=== PATIENT | female | born 1955 | race Caucasian/White ===

== ENCOUNTER 2018-07-04 03:29 | Emergency (ER) | payer MEDICARE, MEDICAID, SELFPAY ==
[2018-07-04 03:34] VITALS: BP 176/104; PULSE 86; RESP 18; TEMP 37.4; O2SAT 96
--- NOTE | 2018-07-04 03:48 | W.ED.GENAD ---
Discharge Plan Disposition Patient Disposition: HOME Condition: Good Discharge Details Chief Complaint: RespSymp Clinical Impression: Upper respiratory infection, viral Primary Care Provider: Terry Myers ED Provider: Yuan Fuentes Home Meds and New Rx's Prescriptions: New benzonatate [Tessalon Perles] 100 mg capsule 100 mg PO TID PRN (Reason: cough) Qty: 20 RF: 0 No Action ibuprofen 600 MG tablet 600 mg PO PRN RF: 0 [id number]-dkufxql-nbtlwzbm 50-325-40 mg Capsule 1 cap PO QID PRN PRNRF: 0 Discharge Instructions Instructions: Upper Respiratory Infection (ED) Additional Instructions: Please drink 8-10 cups of water per day. Please take Tylenol Motrin as needed for sore throat or fever. If you notice any worsening of your symptoms, or any new symptoms such as vomiting, diarrhea, fever, chills, shortness of breath, chest pain, numbness, weakness, or fainting , please return immediately to the emergency department for reevaluation. Please follow up with your primary care provider as soon as possible for reassessment and reevaluation. As always, it was a pleasure participating in your medical care today. Referrals: Terry Myers [Primary Care Provider] - Medical Decision Making This is a 63-year-old female who presents with 48 hours of upper respiratory symptom infections. Runny nose, congestion, mild sore throat. She has had mild associated cough. Physical exam demonstrates normal lung sounds normal vital signs no fever, tachycardia hypoxemia or tachypnea. Minimal erythema in the posterior oropharynx with no tonsillar exudates. No concerning lung sounds suggestive of pneumonia. Patient is adamant that she is concerned she might have strep or the flu, and wants to be checked. Strep test is negative. Physical exam is reassuring. His symptoms have been for 48 hours or greater I do not feel that she would benefit from Tamiflu if she did have influenza. I feel her symptoms more consistent with a regular adenoma rhinovirus causing her symptomatology. We will give Toradol and Decadron for her sore throat and URI symptoms. With reassuring vital signs and normal physical exam I feel she can be safely discharged home with a diagnosis of viral upper respiratory infection. We discussed red flags for which to return the importance of close follow-up with her PCP. I have extensively reviewed the treatment plan and discharge instructions with the patient. I have addressed all patient concerns at this time. The patient was made aware of what symptoms to monitor for that would warrant a return to the emergency department. Discussed the plan with the patient, they demonstrate verbal understanding and agreement with our assessment and plan at this time. HPI General Date/Time Provider Initiated Documentation: 07/04/18 03:36. HPI Narrative: This is a 63-year-old female with no significant past medical history who presents today for evaluation of cough, runny nose, congestion, mild sore throat for the last 48-72 hours. Symptoms have been gradually getting worse and she is concerned for an upper respiratory infection. States that she may has had a fever at home of 101 this evening but is unsure because she was using a rectal thermometer. She has been drinking plenty of fluids, but has had no improvement of her symptoms with this. She has no associated shortness of breath, chest pain, sputum production with her cough, vomiting or diarrhea. She denies any other sick contacts. She did not get her flu shot this year. She denies any other complaints at this time. No other modifying or relieving factors. She denies a surgical history. She denies any tobacco abuse. Related Data Home Medications Medication Instructions Recorded Confirmed ibuprofen 600 mg PO PRN tab-cap 11/14/17 07/04/18 benzonatate [Tessalon Perles] 100 mg PO TID PRN #20 cap 07/04/18 [id number]-[id number] 1 cap PO QID PRN PRN 07/04/18 07/04/18 Previous Rx's Medication Instructions Recorded benzonatate [Tessalon Perles] 100 mg PO TID PRN #20 cap 07/04/18 Allergies Allergy/AdvReac Type Severity Reaction Status Date / Time codeine AdvReac Unverified 07/04/18 03:32 General Stated Complaint: RespSymp DENYS: 3 Review of Systems Review of Systems All systems reviewed & are unremarkable except as noted in HPI and below PFSH Social History Smoking/Tobacco Use Status: Former Tobacco Use Exam Narrative Exam Narrative: 1.Const: Well-nourished, Well-developed, appearing stated age 2.Eyes: PERRL, no conjunctival injection, and symmetrical lids. 3.ENT: Atraumatic external nose and ears. Moist MM. Neck: Symmetric, trachea midline, No thyromegaly. Tympanic membranes normal, no evidence of effusion. No erythema in the posterior oropharynx. No tonsillar exudates 4.CVS: +S1/S2, No murmurs or gallops. Peripheral pulses 2+ and equal in all extremities. Brisk capillary refill in all extremities. 5.RESP: Unlabored respiratory effort. Clear to auscultation bilaterally. No wheezes rales or rhonchi 6.GI: Soft, Nontender/Nondistended, No hepatosplenomegaly. No guarding or rebound. 7.MSK: Normocephalic/Atraumatic, Extremities w/o deformity or ttp No cyanosis or clubbing, Normal movement of all extremities 8.Skin: Warm, Dry. No rashes or lesions. 9.Neuro: temperature inspector II-XII grossly intact. Sensation grossly intact, no focal neurologic deficits. 10.Psych: (AAO) x3. Appropriate mood and affect Course Vital Signs Temperature 37.4 C 07/04/18 03:34 Pulse 86 07/04/18 03:34 Respiratory Rate 18 07/04/18 03:34 Blood Pressure 176/104 H 07/04/18 03:34 Pulse Oximetry 96 07/04/18 03:34 Temperature 37.4 C 07/04/18 03:34 Temperature Source Temporal Artery Scan 07/04/18 03:34 Pulse 86 07/04/18 03:34 Respiratory Rate 18 07/04/18 03:34 Respiratory Effort 07/04/18 03:37 Respiratory Depth Normal 07/04/18 03:37 Blood Pressure 176/104 H 07/04/18 03:34 Pulse Oximetry 96 07/04/18 03:34 Oxygen Delivery Method Room Air 07/04/18 03:34 Oxygen Flow Rate 0 07/04/18 03:34
[2018-07-04] MEDS: Ketorolac 30 MG/ML VIAL IM (03:53)
[2018-07-04] MEDS: Dexamethasone 4 MG TAB 12 MG PO (03:53)
== END 2018-07-04 04:19 | disposition home or self-care (01) ==
LOC: ER 04:24
PROVIDERS: Emergency Provider Student in an Organized Health Care Education/Training Program; PCP Family Medicine
DX: J06.9 Acute upper respiratory infection, unspecified (principal)
CPT/HCPCS: 87449; 87880; 96372; 99284; J1885; J8540

== ENCOUNTER 2019-04-22 18:07 | Emergency (ER) | payer MEDICARE, MEDICAID, SELFPAY ==
[2019-04-22 18:12] VITALS: BP 142/84; PULSE 103; RESP 18; TEMP 38.2; O2SAT 98
--- NOTE | 2019-04-22 18:41 | DI.CT_ITS ---
SYMPTOM/DIAGNOSIS: LEG SWELLING, SOB, TACHYCARDIC CHEST CTA FOR PULMONARY EMBOLISM: CT angiography was performed with multi slice acquisition and multi planar and 3D reconstruction. The aorta and pulmonary arteries are well opacified with IV contrast and there is no evidence of aortic dissection or pulmonary emboli. There are atherosclerotic changes of the aorta but no evidence of an aneurysm. Coronary artery calcifications are also seen. There are no pleural or pericardial effusions or evidence of infiltrates. There are mild emphysematous changes at the upper lobes. Calcifications are seen at the superior aspect of the liver. Calcifications are also seen in the spleen. The findings may represent calcified granulomas. The adrenals and visualized portions of the pancreas and kidneys are unremarkable. IMPRESSION: No evidence of pulmonary emboli or other acute abnormality.
--- NOTE | 2019-04-22 18:49 | DI.US_ITS ---
SYMPTOM/DIAGNOSIS: PAIN, SWELLING LEFT LOWER EXTREMITY ULTRASOUND: The femoral and popliteal veins and visualized calf veins are freely compressible. No thrombus is visible. Doppler venous wave form augments normally. No superficial venous thrombosis or Dobbins's cyst is seen. IMPRESSION: Negative left lower extremity ultrasound. No evidence of DVT.
--- NOTE | 2019-04-22 18:54 | ED.GENADUL_ITS ---
Discharge Plan Disposition Patient Disposition: HOME Discharge Details Chief Complaint: Vascular Clinical Impression: Leg pain, Fever, Left foot infection Primary Care Provider: Terry Myers ED Provider: Gage Perez Home Meds and New Rx's Prescriptions: New cephalexin [Keflex] 500 mg capsule 500 mg PO QID Qty: 28 RF: 0 Continued ibuprofen 600 MG tablet 600 mg PO PRN RF: 0 eggsusaclx-avqjuxh-scproaiu 50-325-40 mg Capsule 1 cap PO QID PRN PRNRF: 0 No Action acetaminophen 325 mg Capsule 325 mg PO PRN PRNRF: 0 prednisone 50 mg tablet 50 mg PO DAILY Qty: 7 RF: 0 sulfamethoxazole-trimethoprim [Bactrim DS] 800-160 mg tablet 1 tab PO BID Qty: 14 RF: 0 Discharge Instructions Instructions: Fever in Adults (ED) Additional Instructions: Please take full course of antibiotic as prescribed. Please take ibuprofen over the counter. Take 600mg by mouth every 6 hours as needed for pain. Please take acetaminophen (tylenol) - 650mg every 6 hours by mouth as needed for pain. Please contact your primary care physician to arrange follow-up. Return to the ER for any worsening or new concerning symptoms. Referrals: Terry Myers [Primary Care Provider] - Discharge Data Discharge Date/Time-TO BE ENTERED AT DEPARTURE: 04/22/19 22:14 Medical Decision Making 19:00 --64-year-old female here with left lower leg pain and tenderness since earlier today. She has low-grade fever and tachycardia. She is anxious which I think is contributing to her symptoms. Patient has had shortness of breath. Given the leg discomfort and concern for potential DVT, tachycardia and shortness of breath, I am worried about potential pulmonary embolism. Plan to obtain CT of the chest. Will obtain ultrasound of the left lower extremity to assess for DVT. --Ultrasound interpreted by radiology: No acute findings. No evidence of DVT. ECG was reviewed and interpreted by me: Sinus rhythm 75 bpm, normal axis, no STEMI, nondiagnostic.' --CT chest and interpreted by radiology: No evidence of PE. No significant consolidations. Mild interstitial lung scarring. No specific etiology identified for the patient's symptoms. Labs reviewed and mild leukocytosis noted. Tick panel sent. All results were discussed with the patient. Patient was reassessed and felt better after Tylenol. On reassessment she does note that she has lesion sole left foot with purulent discharge today. Foot examined: Small wound with small amount of purulent discharge and no induration, fluctuance, or erythema or warmth. She notes she may have stepped on something a few days ago. Unsure of tetanus status. Plan to treat with Boostrix and I will start Keflex. Plan for outpatient follow-up with PCP. Disposition decision was made weighing the risks and benefits of hospitalization versus outpatient treatment, the risk for further decompensation, and the patient's wishes. The patient was stable and requested discharge. Prior to discharge, my usual and customary return precautions were reviewed with the patient - this included follow-up instructions and reason to return to the emergency department if condition worsens, does not improve as expected, or other new concerns arise. HPI General Mode of arrival: ambulatory . Date/Time Provider Initiated Documentation: 04/22/19 18:15 . Limitations to Documentation: no limitations . Information obtained by: patient . HPI Narrative: 64-year-old female presents with chief complaint of left leg pain. Pain started this morning. Pain is localized to medial and posterior lower leg and extends proximally medially up to her thigh. She notes she also had some pain in her right leg which has since resolved. Pain is worse on palpation of her leg. She thinks area feels swollen. She also notes associated subjective fever today with some chills. She denies cough and dysuria. She does have some shortness of breath. No chest pain. No abdominal pain. No recent long distance travel, immobility, or surgery. No history of DVTs in the past. Related Data Home Medications Medication Instructions Recorded Confirmed ibuprofen 600 mg PO PRN tab-cap 11/14/17 04/24/19 [id number]-[id number] 1 cap PO QID PRN PRN 07/04/18 04/24/19 cephalexin [Keflex] 500 mg PO QID #28 cap 04/22/19 04/24/19 acetaminophen 325 mg PO PRN PRN 04/24/19 04/24/19 prednisone 50 mg PO DAILY #7 tab 04/24/19 sulfamethoxazole-trimethoprim 1 tab PO BID #14 tab 04/24/19 [Bactrim DS] Previous Rx's Medication Instructions Recorded cephalexin [Keflex] 500 mg PO QID #28 cap 04/22/19 prednisone 50 mg PO DAILY #7 tab 04/24/19 sulfamethoxazole-trimethoprim 1 tab PO BID #14 tab 04/24/19 [Bactrim DS] Allergies Allergy/AdvReac Type Severity Reaction Status Date / Time codeine AdvReac Unverified 04/24/19 15:48 General Stated Complaint: Vascular DENYS: 3 Review of Systems Constitutional Reports chills, Reports fever(s) and Reports headache(s) (chronic unchanged) ENT Reports headache(s) (chronic unchanged) Cardiovascular Denies chest pain and Reports dyspnea Respiratory Reports dyspnea Neurologic Reports headache(s) (chronic unchanged) Psychiatric Reports anxiety PFSH Social History Smoking/Tobacco Use Status: Former Tobacco Use Alcohol Intake: current Alcohol Intake frequency: a few times a week Drug use: Never Do you feel safe in your relationship?: Yes Exam Const General: cooperative and no acute distress HENMT Head: normocephalic Mouth: moist mucous membranes Eyes Conjunctivae: normal conjunctivae Sclera: normal sclerae Neck Neck: trachea midline and supple Resp Auscultation: clear to auscultation bilaterally, no rales, no rhonchi and no wheezes Cardio Jugular venous pressure: no JVD Rate: tachycardic Rhythm: regular rhythm Heart Sounds: no gallops, no murmurs and no rubs GI Palpation: soft, not firm, no guarding, no masses, not rigid and nontender Skin General skin exam: no rashes or lesions noted Neuro General: alert, awake, oriented x3 and tone normal Extrem Right lower extremity: lower leg Details: no edema; no erythema and no tenderness Left lower extremity: lower leg Details: tenderness (left lower leg medial ttp with mild swelling); no erythema Psych Appearance: grossly normal Mental Status: mental status grossly normal Speech and Movement: speech and movement normal Affect: anxious affect Course Vital Signs Temperature 38.2 C H 04/22/19 18:12 Pulse 103 H 04/22/19 18:12 Respiratory Rate 18 04/22/19 18:12 Blood Pressure 142/84 H 04/22/19 18:12 Pulse Oximetry 98 04/22/19 18:12 Temperature 38.2 C H 04/22/19 18:12 Temperature Source Oral 04/22/19 18:12 Pulse 103 H 04/22/19 18:12 Respiratory Rate 18 04/22/19 18:12 Respiratory Effort 04/22/19 18:42 Blood Pressure 142/84 H 04/22/19 18:12 Blood Pressure Position Sitting 04/22/19 18:12 Pulse Oximetry 98 04/22/19 18:12 Oxygen Delivery Method Room Air 04/22/19 18:12 Oxygen Flow Rate 0 04/22/19 18:12
[2019-04-22 19:08] LABS: Abs Immature Grans 0.01 k/cumm (0.0-0.09); Absolute Basophil Count 0.01 k/cumm (0.0-0.2); Absolute Lymphocyte Count 1.32 k/cumm (1.2-3.4); Absolute Monocyte Count 0.52 k/cumm (0.11-0.7); Absolute Neutrophil Count 9.22 k/cumm (1.2-6.7); Basophils % 0.1; HCT 40.2 % (36.0-46.0); HGB 13.5 g/dL (12.0-15.5); Immature Grans % 0.1; Lymphocytes % 11.9; Mean Corp. HGB Concentration 33.6 g/dL (32.0-36.0); Mean Corpuscular Hemoglobin 29.1 pg (27.0-33.0); Mean Corpuscular Volume 86.6 fL (80-95); Mean Platelet Volume 9.9 fL (8.0-11.0); Monocytes % 4.7; Neutrophils % 83.2; Platelet Count 344 x1000/uL (130-400); RBC 4.64 m/cumm (4.00-5.20); RBC Distribution Width 14.9 % (11.7-14.6); White Blood Cell Count 11.08 k/cumm (4.4-10.8)
--- NOTE | 2019-04-22 19:21 | DI.VRAD_ITS ---
EXAM: US Duplex Left Lower Extremity Veins, Limited EXAM DATE/TIME: 04/22/2019 7:14 PM CLINICAL HISTORY: 64 years old, female; Pain; Leg, lower; Left TECHNIQUE: Imaging protocol: Real-time Duplex ultrasound of the Left Lower Extremity with 2-D hudson scale, color Doppler flow and spectral waveform analysis with image documentation. Limited exam focused on the left lower extremity veins. COMPARISON: No relevant prior studies available. FINDINGS: Left deep veins: Unremarkable. The common femoral, femoral, proximal profunda femoral and popliteal veins are patent without thrombus. Normal Doppler waveforms. Normal compressibility and/or augmentation response. Left superficial veins: Unremarkable. Saphenofemoral junction is patent without thrombus. Soft tissues: Unremarkable. IMPRESSION: No acute findings. No evidence of deep vein thrombosis. Dictated and Authenticated by: Zuhair Rae MD. Ordering:RAYMUNDO Almonte MD
[2019-04-22 19:24] LABS: ALT 18 U/L (14-59); AST 15 U/L (15-37); Albumin 3.6 g/dL (3.4-5.0); Alkaline Phosphatase 70 U/L (46-116); Anion Gap 12.4 mmol/L (3-11); BUN 17 mg/dL (7-18); Bilirubin, Total 0.7 mg/dL (0.2-1.0); CO2 21.6 mmol/L (21.0-32.0); Chloride 98 mmol/L (98-107); Estimated GFR 55.64 (mL/min/1.73m2); Glucose 115 mg/dL (70-100); Potassium 3.8 mmol/L (3.5-5.1); Sodium 132 mmol/L (136-145); Total Protein 7.8 g/dL (6.4-8.2)
[2019-04-22 19:25] LABS: Troponin I < 0.05 ng/mL (0.00-0.06)
[2019-04-22] MEDS: Omnipaque 350 MG/ML 100 ML BTL IJ (19:33)
[2019-04-22 19:41] VITALS: PULSE 84; TEMP 37.4
[2019-04-22 19:44] VITALS: PULSE 78; RESP 16; O2SAT 96
--- NOTE | 2019-04-22 19:50 | DI.VRAD_ITS ---
EXAM: CT Angiography Chest With Contrast EXAM DATE/TIME: 04/22/2019 6:43 PM CLINICAL HISTORY: 64 years old, female; Shortness of breath and tachypnea; Patient HX: Leg swelling, sbo, tachycardic TECHNIQUE: Imaging protocol: Computed tomographic angiography of the chest with intravenous contrast. 3D rendering: MIP reconstructed images were created and reviewed. COMPARISON: CR CHEST 2 VIEWS PA,LAT 10/11/2017 4:18 PM FINDINGS: No evidence of PE. Mild interstitial lung scarring. No significant consolidations. No pleural effusion. No pneumothorax. No adenopathy. Unremarkable upper abdomen. No acute mediastinal or aortic abnormality. IMPRESSION: No specific etiology identified for the patient's symptoms. Dictated and Authenticated by: Zuhair Rae MD. Ordering:RAYMUNDO Almonte MD
[2019-04-22 20:14] VITALS: PULSE 80; RESP 16; TEMP 38.3; O2SAT 96
[2019-04-22] MEDS: Acetaminophen 325 MG TAB 650 MG PO (20:24)
[2019-04-22 21:51] VITALS: PULSE 78; RESP 16; TEMP 37.8; O2SAT 98
[2019-04-22] MEDS: Cephalexin 500 MG CAP PO (22:05)
[2019-04-24 11:37] LABS: Lyme Ab w Rflx to Lyme Confirm Negative
[2019-04-26 15:04] LABS: Anaplasma phagocytophilum Negative (Negative); B. miyamotoi PCR Negative (Negative); Babesia divergens/MO-1 Negative (Negative); Babesia duncani Negative (Negative); Babesia microti Negative (Negative); Ehrlichia chaffeensis Negative (Negative); Ehrlichia ewingii/canis Negative (Negative); Ehrlichia muris eauclairensis Negative (Negative)
== END 2019-04-22 22:14 | disposition home or self-care (01) ==
PROVIDERS: Emergency Provider Student in an Organized Health Care Education/Training Program; PCP Family Medicine
DX: M79.662 Pain in left lower leg (principal); R50.9 Fever, unspecified; R06.02 Shortness of breath; L08.9 Local infection of the skin and subcutaneous tissue, unspecified
CPT/HCPCS: 36415; 71275; 80053; 87798; 90471; 93005; 99285; 84484; 85025; 86618; 93010; 93971; J3490

== ENCOUNTER 2019-04-24 15:38 | Emergency (ER) | payer MEDICARE, MEDICAID, SELFPAY ==
[2019-04-24 15:42] VITALS: BP 130/76; PULSE 72; RESP 18; TEMP 36.4; O2SAT 97
--- NOTE | 2019-04-24 16:03 | ED.GENADUL_ITS ---
Discharge Plan Disposition Patient Disposition: HOME Condition: Stable Discharge Details Chief Complaint: Cellulitis Clinical Impression: Left foot infection Primary Care Provider: Terry Myers ED Provider: Willi Contreras Home Meds and New Rx's Prescriptions: New prednisone 50 mg tablet 50 mg PO DAILY Qty: 7 RF: 0 sulfamethoxazole-trimethoprim [Bactrim DS] 800-160 mg tablet 1 tab PO BID Qty: 14 RF: 0 Continued ibuprofen 600 MG tablet 600 mg PO PRN RF: 0 [id number]-ntxtfdb-xvwuqaln 50-325-40 mg Capsule 1 cap PO QID PRN PRNRF: 0 cephalexin [Keflex] 500 mg capsule 500 mg PO QID Qty: 28 RF: 0 acetaminophen 325 mg Capsule 325 mg PO PRN PRNRF: 0 Discharge Instructions Additional Instructions: continue taking the cephalexin and start taking bactrim and prendisone if not better in a week see your primary care provider you can take 81mg aspirin daily if you have fevers over 101 or severe worsening of pain return to the emergency department Medical Decision Making 64 yo female who was started on cephalexin for a left plantar wound infection after negative u/s of the leg and Pe study on 04/22, comes in with new area of erythema of the medial proximal calf. She has not had fevers and has dull ache otherwise no severe pain. She is in no distress on exam. She has no significant swelling of the leg and the wound on the plantar surface appears to be healing well. She has no a 2x3cm of mild erythema of the right proximal medial thigh without fluctuance or crepitus or severe warmth and on bedside u/s has no visible abscess or evidence of cellulitis. I suspect possible dermatitis vs less likely superficial thrombophlebitis. Given new redness will add mrsa coverage and try steroids to see if it helps with the inflammation if it is dermatitis. Had an u/s two days ago so doubt new dvt. Has no severe pain, fevers, or crepitus and apepars well so doubt sepsis or nec fasc at this time. Advised f/u with pcp and return precautions given Differential Diagnosis cellulitis, dermatitis HPI General Mode of arrival: ambulatory . Date/Time Provider Initiated Documentation: 04/24/19 15:38 . Limitations to Documentation: no limitations . Information obtained by: patient . History of Present Illness 64 year old F presents to the emergency department with the chief complaint of left leg redness, described as moderate, Patient started experiencing this day(s) (1) and it has been constant. No relieving factors improve symptom(s), No exacerbating factors reported . Related Data Home Medications Medication Instructions Recorded Confirmed ibuprofen 600 mg PO PRN tab-cap 11/14/17 04/24/19 [id number]-[id number] 1 cap PO QID PRN PRN 07/04/18 04/24/19 cephalexin [Keflex] 500 mg PO QID #28 cap 04/22/19 04/24/19 acetaminophen 325 mg PO PRN PRN 04/24/19 04/24/19 prednisone 50 mg PO DAILY #7 tab 04/24/19 sulfamethoxazole-trimethoprim 1 tab PO BID #14 tab 04/24/19 [Bactrim DS] Previous Rx's Medication Instructions Recorded cephalexin [Keflex] 500 mg PO QID #28 cap 04/22/19 prednisone 50 mg PO DAILY #7 tab 04/24/19 sulfamethoxazole-trimethoprim 1 tab PO BID #14 tab 04/24/19 [Bactrim DS] Allergies Allergy/AdvReac Type Severity Reaction Status Date / Time codeine AdvReac Unverified 04/24/19 15:48 General Stated Complaint: Cellulitis DENYS: 3 Review of Systems Review of Systems All systems reviewed & are unremarkable except as noted in HPI and below Constitutional Denies weakness Cardiovascular Denies chest pain and Denies dyspnea Respiratory Denies cough and Denies dyspnea Gastrointestinal Denies abdominal pain, Denies nausea and Denies vomiting Musculoskeletal Denies joint swelling Neurologic Denies weakness [facility] Social History Smoking/Tobacco Use Status: Former Tobacco Use Alcohol Intake: current Alcohol Intake frequency: a few times a week Drug use: Never Do you feel safe in your relationship?: Yes Exam Const General: no acute distress Orientation: alert HENMT Head: normal to inspection Ears: external ears normal General nose exam: external nose normal Mouth: moist mucous membranes Eyes General: appearance normal, both eyes and all related structures Neck Neck: normal visual inspection Resp Effort & Inspection: normal respiratory effort and able to speak in complete sentences Cardio Rate: regular rate Skin General skin exam: elasticity normal Neuro General: alert and oriented x3 Extrem General: full ROM and normal capillary refill Psych Mental Status: mental status grossly normal Course Vital Signs Temperature 36.4 C L 04/24/19 15:42 Pulse 72 04/24/19 15:42 Respiratory Rate 18 04/24/19 15:42 Blood Pressure 130/76 04/24/19 15:42 Pulse Oximetry 97 04/24/19 15:42 Temperature 36.4 C L 04/24/19 15:42 Temperature Source Skin 04/24/19 15:42 Pulse 72 04/24/19 15:42 Respiratory Rate 18 04/24/19 15:42 Respiratory Effort Non-Labored 04/24/19 15:46 Blood Pressure 130/76 04/24/19 15:42 Blood Pressure Position Sitting 04/24/19 15:42 Pulse Oximetry 97 04/24/19 15:42 Oxygen Delivery Method Room Air 04/24/19 15:42 Oxygen Flow Rate 0 04/24/19 15:42 Pain Level 5 04/24/19 15:42
== END 2019-04-24 16:25 | disposition home or self-care (01) ==
LOC: ER 16:17
PROVIDERS: Emergency Provider Emergency Medicine; PCP Family Medicine
DX: L08.9 Local infection of the skin and subcutaneous tissue, unspecified (principal); L53.8 Other specified erythematous conditions
CPT/HCPCS: 99283

== ENCOUNTER 2019-05-17 01:45 | Outpatient (CLI) | payer MEDICARE, MEDICAID, SELFPAY ==
--- NOTE | 2019-05-17 13:44 | DI.US_ITS ---
EXAM: US LOWER EXTREMITY VENOUS LT CLINICAL HISTORY: LT LEG PAIN M79.605. TECHNIQUE: Ultrasound performed using standard protocol. COMPARISON: US LOWER EXTREMITY VASCULAR LT from 04/22/2019 FINDINGS: Duplex venous ultrasound left lower extremity was performed according to the usual protocol. There i s no evidence of deep venous thrombosis. A 1 cm in diameter complex fluid collection is noted the subcutaneous tissues corresponding to an are a of palpable abnormality. The findings are nonspecific but do not represent venous thrombosis. IMPRESSION:
== END 2019-05-17 02:05 ==
PROVIDERS: PCP Family Medicine; Visit Provider Family Medicine
DX: M79.605 Pain in left leg (principal); M79.89 Other specified soft tissue disorders
CPT/HCPCS: 93971

== ENCOUNTER 2020-03-26 01:01 | Outpatient (CLI) | payer MEDICARE, MEDICAID, SELFPAY ==
--- NOTE | 2020-03-26 | DI.MAMMO_ITS ---
EXAM: MAMMO SCREENING CLINICAL HISTORY: SCREENING, PREVENTIVE HEALTH CARE,Z00.00 TECHNIQUE: Mammograms were interpreted according to the usual protocol including computer analysis w [employer] system, tomosynthesis and C-view imaging. COMPARISON: FINDINGS: The breasts are of moderate density with fairly symmetrical distribution of fibroglandular tissue. N o dominant mass or clumped microcalcification is identified in either breast. The current examinatio n is compared with previous examinations including October 2017 and there has been no gross interval ch alley in appearance in comparison with the prior studies. IMPRESSION: No specific evidence of malignancy at this time. Routine screening examinations are suggested at ye colette intervals in this age group according to the ACS ACR guidelines. Category: BI-RADS Cat 1 - Negative Breast Density - Category B - Scattered areas of fibroglandular density
== END 2020-03-26 01:21 ==
PROVIDERS: PCP Family Medicine; Visit Provider Family Medicine
DX: Z12.31 Encounter for screening mammogram for malignant neoplasm of breast (principal); Z00.00 Encounter for general adult medical examination without abnormal findings; R92.2 Inconclusive mammogram
CPT/HCPCS: 77063; 77067

== ENCOUNTER 2021-03-30 01:36 | Outpatient (CLI) | payer MEDICARE, MEDICAID, SELFPAY ==
--- NOTE | 2021-03-30 | DI.MAMMO_ITS ---
Exam(s) MAMMO SCREENING EXAM: MAMMO SCREENING CLINICAL HISTORY: SCREENING,Z12.31 TECHNIQUE: Mammograms were interpreted according to the usual protocol including computer analysis w [employer] CAD system, tomosynthesis and C-view imaging. COMPARISON: 2010 through 2019 FINDINGS: The breasts are composed of mainly fatty density , Breast Density category A. No suspicious masses or suspicious microcalcifications are seen. No skin thickening or abnormal axillary lymph nodes are seen. There has been no significant change from prior exams. IMPRESSION: BI-RADS Category 1, Negative mammogram Yearly screening mammography is recommended. Breast Density - Category A, fatty density. A negative radiographic report should not delay biopsy if a dominant or clinically suspicious mass is present. Up to ten percent of cancers are not identified on mammography. A negative report may reinforce clinical impression. Adenosis and dense breasts may obscure an underlying neoplasm. False positive reports average 6 to 10%. Patient will receive a letter notifying them of these results.
--- NOTE | 2021-03-30 15:21 | DI.RAD_ITS ---
Exam(s) XR LUMBAR SPINE COMPLETE EXAM: XR LUMBAR SPINE COMPLETE CLINICAL HISTORY: DEGENERATION OF LUMBAR INTERVERTEBRAL DISC, M51.36. TECHNIQUE: 2D digital imaging was performed. COMPARISON: CT CT CHEST PE CTA from 04/22/[address] CHEST PE CTA from 04/22/2019 FINDINGS: There are no compression fractures. There is severe narrowing of the L2-3 disc space. Endplate oste ophytes are noted at this level. Minimal osteophytes are seen at L3-4. The remaining disc spaces ar e well maintained. Facet degenerative changes are present at L4-5 and L5-S1. No spondylolysis or sp ondylolisthesis is seen. The aorta is calcified and normal in diameter. The SI joints are unremarka ble. IMPRESSION: Degenerative disc changes, greatest at L2-3. DATA REPOSITORY: RADIATION DOSE DELIVERED:
== END 2021-03-30 01:56 ==
PROVIDERS: PCP Family Medicine; Visit Provider Nurse Practitioner Family
DX: Z12.31 Encounter for screening mammogram for malignant neoplasm of breast (principal); M51.36 Other intervertebral disc degeneration, lumbar region; R92.8 Other abnormal and inconclusive findings on diagnostic imaging of breast
CPT/HCPCS: 77063; 77067; 72110

== ENCOUNTER 2021-08-17 13:17 | Emergency (ER) | payer MEDICARE, MEDICAID, SELFPAY ==
[2021-08-17 13:22] VITALS: BP 159/75; PULSE 56; RESP 16; TEMP 36.6; O2SAT 98
--- OUTSIDE RECORDS SUMMARY | 2021-08-17 13:22 | XMS_ITS ---
:1955 Author Care Team Providers Name Role Phone TRI ZEE MD Primary Care Provider [phone] Allergies Code Code System Name Reaction Severity Status Onset 2670 RxNorm Codeine Nausea ? Active ? Medications Name Status Start Date Stop Date ? ? Arthritis Pain Relief (acetaminophen) ER 650 mg tablet,extend re lease Active ? Not available TAKE TWO TABLETS BY MOUTH AT BEDTIME sidlafppwj-[id number] 50 mg-325 Active ? Not available mg-40 mg capsule cephalexin 500 mg capsule Completed ? 2019 EC-Naproxen 500 mg tablet,delayed release Active ? Not available TAKE ONE TABLET BY MOUTH AT BEDTIME FOR 90 DAYS Fluzone High-Dose Quad (PF) 240 mcg/0.7 mL IM syringe Co mpleted ? 03/16/2021 INJECT ONCE ibuprofen 600 mg tablet Completed ? 03/15/20 21 lidocaine 5 % topical ointment Active ? N ot available APPLY 1 APPLICATION TOPICALLY TO LOW BA CK NIGHTLY AND DURING THE DAY NEEDED FOUR TIMES A DAY methocarbamol 500 mg tablet Active ? Not available oxycodone 5 mg tablet Completed ? 03/03/2020 Take 1 tablet 3 times a day by oral route for 10 days. prednisone 20 mg tablet Completed ? 08/30/19 20 prednisone 50 mg tablet Completed ? 08/30/19 20 sulfamethoxazole 800 mg-trimethoprim Completed ? 08/30/2019 160 mg tablet triamcinolone acetonide 0.1 % topical Active ? Not available cream Notes: reconciled meds 10/06/2020 Problems Name Status Onset Date Source ? Hypothyroidism Active 08/27/2019 ? Insomnia Active 08/27/2019 ? Actinic Keratosis Active 08/27/2019 ? Syncope Active 08/27/2019 ? Seborrheic Keratosis of Scalp Active 08/27/2019 ? Screening for Cardiovascular System Disease Unknown 08/21 ? Hyperlipidemia Active 03/03/2020 ? Adult Health Examination Active 03/03/2020 ? Screening Colonoscopy Active 03/03/2020 ? Eczema Active 03/15/2021 ? Degeneration of Lumbar Intervertebral Disc Active 03/15 ? Migraine Active ? ? Arthritis Active ? ? Intervertebral Disc Prolapse Active ? ? Injury of Rotator Cuff Active ? ? Procedures Date Name Performed by ? 08/19/2019 Repair of Musculotendinous Cuff of Shoul haider Information not available Notes: [facility] 12/26/2007 Colonoscopy Information not avai lable Notes: Normal 01/19/1995 Ganglion Excision Information not avai lable Notes: ganglion removed from ring fin bertha on right hand 03/03/2020 MAMMO, Screening, Tomosynthesis, Xray Nv rh Bilateral Pob [address] [facility] [place] [address] ([address]) 09/15/2020 MAMMO, Screening, Tomosynthesis, Xray Nv Bilateral Pob [address] [facility] [place] [address] (Work Place) 03/15/2021 XR, Lumbosacral Spine, 2 or 3 View Xray [facility] Pob [address] [facility] [place] [address] (Work Place) Results Lab Results Date Name Specimen Result Interpretation Description Value Range Status Address ? 03/01/2021 CMP, Serum or S ? g/r 98 mg/dL 74-106 Simin l [place] Plasma mg/dL [facility] (Internal) : [address] ? ? S High Bun 19 mg/dL 7-17 Final North mg/dL [facility] L ab (Internal) : [address] t ? ? S ? Crea 0.80 mg/dL 0.52-1. Final North 04 [facility] mg/dL Hospital L ab (Internal) : [address] t ? ? S ? Ca 10.0 mg/dL 8.4-10. Final North 2 mg/dL [facility] (Internal) : [address] t ? ? S ? Na 140 mmol/L 137-145 Final North mmol/L [facility] (Internal) : [address] t ? ? S ? K 5.1 mmol/L 3.5-5.1 Final North mmol/L [facility] (Internal) : [address] t ? ? S ? Cl 106 mmol/L 98-107 Final North mmol/L [facility] (Internal) : [address] t ? ? S ? Tco2 27.0 mmol/L 22.0-30 Final Nort h .0 [facility] mmol/L Hospital L ab (Internal) : [address] t ? ? S ? Tp 7.5 g/dL 6.3-8.2 Final North g/dL [facility] (Internal) : [address] t ? ? S ? Alb 4.3 g/dL 3.5-5.0 Final North g/dL [facility] (Internal) : [address] t ? ? S ? Tbil 0.4 mg/dL 0.2-1.3 Final North mg/dL [facility] L ab (Internal) : [address] t ? ? S ? Alp 70 U/L 38-126 Final [place] U/L [facility] L ab (Internal) : [address] t ? ? S ? Alt (Sgpt) 16 U/L 9-52 Final North U/L [facility] L ab (Internal) : [address] t ? ? S ? Ast (Sgot) 25 U/L 14-36 Final [place] U/L [facility] (Internal) : [address] 03/01/2021 Lipid Panel, S High Chol 275 mg/dL 50-200 Simin l [place] Serum mg/dL [facility] L ab (Internal) : [address] t ? ? S ? Trig 88 mg/dL 10-150 Final North mg/dL [facility] L ab (Internal) : [address] ? ? S High Hdl 73 mg/dL 40-60 Final North mg/dL [facility] (Internal) : [address] ? ? S High Ldl 184 mg/dL 0-130 Final North mg/dL [facility] L ab (Internal) : [address] 10/06/2020 Pap Test, MISC ? Hpv see report ? Final [place] [facility] : [address] ? ? MISC ? Pap see report ? Final [facility] (Internal) : [address], [place] ? ? MISC ? Report (see below) ? Final Nort h [facility] (Internal) : [address] 09/01/2020 CBC W/ Auto BLD ? Wbc 6.0 10*3/uL 5.0-10. Fi nal [place] Diff 0 [facility] 10*3/uL Hospital Lab (Internal) : [address] ? ? BLD ? Rbc 4.86 10*6/uL 4.10-5. Final Nor 30 [facility] 10*6/uL Hospital Lab (Internal) : [address] ? ? BLD ? Hgb 13.5 g/dL 12.0-16 Final North .0 g/dL [facility] (Internal) : [address] ? ? BLD ? Hct 43.6 % 37.0-47 Final North .0 % [facility] (Internal) : [address] ? ? BLD ? Mcv 89.7 fL 80.0-96 Final North .0 fL [facility] (Internal) : [address] ? ? BLD ? Mch 27.8 pg 26.0-32 Final North .0 pg [facility] (Internal) : [address], [place] ? ? BLD ? Mchc 31.0 g/dL 31.0-35 Final North .0 g/dL [facility] (Internal) : [address] ? ? BLD High Rdw 14.8 % 11.5-14 Final North .5 % [facility] (Internal) : [address] ? ? BLD ? Plt 396 10*3/uL 130-450 Final Nort h 10*3/uL [facility] (Internal) : [address] ? ? BLD ? Anc 3.30 10*3/uL ? Final Nort h [facility] (Internal) : [address] ? ? BLD ? Nlr 1.64 0.00-3. Final North 20 [facility] (Internal) : [address] ? ? BLD ? Neutro 54.9 % 40.0-75 Final North .0 % [facility] (Internal) : [address] ? ? BLD ? Lymph 33.4 % 20.0-50 Final North .0 % [facility] (Internal) : [address] ? ? BLD ? [place] 6.8 % 2.0-10. Final North 0 % [facility] (Internal) : [address] ? ? BLD ? Eos 3.7 % 1.0-6.0 Final North % [facility] (Internal) : [address] ? ? BLD ? Baso 0.5 % 0.0-1.0 Final North % [facility] (Internal) : [address] ? ? BLD ? Ig 0.7 % 0.0-0.9 Final North % [facility] (Internal) : [address] 09/01/2020 T4, Free, S ? Ft4 0.98 NG/dL 0.78-2. Final North Serum 19 Country NG/dL Hospital L ab (Internal) : [address] 09/01/2020 TSH, Serum or S ? Tsh 3.73 u[IU]/mL 0.47-4 . Final North Plasma 68 [facility] u[IU]/m Hospital Lab L (Internal) : [address] 09/01/2020 Lipid Panel, S High Chol 233 mg/dL 50-200 Simin [place] Serum mg/dL [facility] (Internal) : [address] ? ? S ? Trig 62 mg/dL 10-150 Final North mg/dL [facility] (Internal) : [address] ? ? S High Hdl 62 mg/dL 40-60 Final North mg/dL [facility] (Internal) : [address] ? ? S High Ldl 159 mg/dL 0-130 Final North mg/dL [facility] (Internal) : [address] 09/01/2020 CMP, Serum or S ? g/r 96 mg/dL 74-106 Simin l [place] Plasma mg/dL [facility] (Internal) : [address] ? ? S ? Bun 14 mg/dL 7-17 Final [place] mg/dL [facility] (Internal[facility] : [address] ? ? S ? Crea 0.80 mg/dL 0.52-1. Final North 04 [facility] mg/dL Hospital L ab (Internal) : [address] ? ? S ? Ca 9.3 mg/dL 8.4-10. Final North 2 mg/dL [facility] (Internal) : [address] ? ? S ? Na 143 mmol/L 137-145 Final [facility] mmol/L [facility] (Internal) : [address] ? ? S ? K 4.3 mmol/L 3.5-5.1 Final [facility] mmol/L [facility] (Internal) : [address] ? ? S High Cl 109 mmol/L 98-107 Final [facility] mmol/L [facility] (Internal) : [address] ? ? S ? Tco2 25.0 mmol/L 22.0-30 Final Nort h .0 [facility] mmol/L Hospital L ab (Internal) : [address] ? ? S ? Tp 7.5 g/dL 6.3-8.2 Final [place] g/dL [facility] (Internal) : [address] ? ? S ? Alb 4.1 g/dL 3.5-5.0 Final [place] g/dL [facility] (Internal) : [address] ? ? S ? Tbil 0.3 mg/dL 0.2-1.3 Final North mg/dL [facility] (Internal) : [address] ? ? S ? Alp 69 U/L 38-126 Final [place] U/L [facility] (Internal) : [address] ? ? S ? Alt (Sgpt) 16 U/L 9-52 Final [place] U/L [facility] (Internal) : [address] ? ? S ? Ast (Sgot) 24 U/L 14-36 Final [place] U/L [facility] (Internal[facility] : [address] 02/25/2020 CBC W/ Auto BLD ? Wbc 6.5 10*3/uL 5.0-10. Fi nal North Diff 0 [facility] 10*3/uL Hospital Lab (Internal) : [address] ? ? BLD ? Rbc 4.59 10*6/uL 4.10-5. Final Nor th 30 Country 10*6/uL Hospital Lab (Internal) : [address] ? ? BLD ? Hgb 13.1 g/dL 12.0-16 Final North .0 g/dL [facility] (Internal) : [address] ? ? BLD ? Hct 40.8 % 37.0-47 Final North .0 % [facility] (Internal) : [address] ? ? BLD ? Mcv 88.9 fL 80.0-96 Final North .0 fL [facility] (Internal) : [address] ? ? BLD ? Mch 28.5 pg 26.0-32 Final North .0 pg [facility] (Internal) : [address] ? ? BLD ? Mchc 32.1 g/dL 31.0-35 Final North .0 g/dL [facility] (Internal) : [address] ? ? BLD ? Rdw 14.2 % 11.5-14 Final North .5 % [facility] (Internal) : [address] ? ? BLD ? Plt 412 10*3/uL 130-450 Final Nort h 10*3/uL [facility] (Internal) : [address] ? ? BLD ? Anc 3.08 10*3/uL ? Final Nort h [facility] (Internal) : [address] ? ? BLD ? Nlr 1.17 0.00-3. Final North 20 [facility] (Internal) : [address] ? ? BLD ? Neutro 47.2 % 40.0-75 Final North .0 % [facility] (Internal) : [address] ? ? BLD ? Lymph 40.6 % 20.0-50 Final North .0 % [facility] (Internal) : [address] ? ? BLD ? [place] 8.0 % 2.0-10. Final North 0 % [facility] (Internal) : [address] ? ? BLD ? Eos 3.2 % 1.0-6.0 Final North % [facility] (Internal) : [address] ? ? BLD ? Baso 0.5 % 0.0-1.0 Final North % [facility] (Internal) : [address] ? ? BLD ? Ig 0.5 % 0.0-0.9 Final North % [facility] (Internal) : [address] 02/25/2020 CMP, Serum or S ? g/r 96 mg/dL 74-106 Simin l [place] Plasma mg/dL [facility] (Internal) : [address] ? ? S High Bun 22 mg/dL 7-17 Final North mg/dL [facility] (Internal) : [address] ? ? S ? Crea 0.70 mg/dL 0.52-1. Final North 04 [facility] mg/dL Hospital L ab (Internal) : [address] ? ? S ? Ca 9.7 mg/dL 8.4-10. Final North 2 mg/dL [facility] (Internal) : [address] ? ? S ? Na 142 mmol/L 137-145 Final North mmol/L [facility] (Internal) : [address] ? ? S ? K 4.3 mmol/L 3.5-5.1 Final North mmol/L [facility] (Internal) : [address] ? ? S High Cl 108 mmol/L 98-107 Final [facility] mmol/L [facility] (Internal) : [address] ? ? S ? Tco2 25.0 mmol/L 22.0-30 Final Nort h .0 [facility] mmol/L Hospital L ab (Internal) : [address] ? ? S ? Tp 7.5 g/dL 6.3-8.2 Final North g/dL [facility] L ab (Internal) : [address] ? ? S ? Alb 4.0 g/dL 3.5-5.0 Final North g/dL [facility] L ab (Internal) : [address] ? ? S ? Tbil 0.4 mg/dL 0.2-1.3 Final North mg/dL [facility] L ab (Internal) : [address] ? ? S ? Alp 89 U/L 38-126 Final North U/L [facility] L ab (Internal) : [address] ? ? S ? Alt (Sgpt) 20 U/L 9-52 Final North U/L [facility] L ab (Internal) : [address] ? ? S ? Ast (Sgot) 26 U/L 14-36 Final North U/L [facility] L ab (Internal) : [address] 02/25/2020 Lipid Panel, S High Chol 225 mg/dL 50-200 Simin l [place] Serum mg/dL [facility] L ab (Internal) : [address] ? ? S ? Trig 83 mg/dL 10-150 Final North mg/dL [facility] L ab (Internal) : [address] ? ? S ? Hdl 56 mg/dL 40-60 Final North mg/dL [facility] L ab (Internal) : [address] ? ? S High Ldl 152 mg/dL 0-130 Final North mg/dL [facility] (Internal) : [address] 02/25/2020 T4, Free, S ? Ft4 0.97 NG/dL 0.78-2. Final North Serum 19 [facility] NG/dL Hospital L [facility] (Internal) : [address] [facility] 02/25/2020 TSH, Serum or S High Tsh 8.80 u[IU]/mL 0.47-4 . Final North Plasma 68 [facility] u[IU]/m Hospital Lab L (Internal) : [address] 02/25/2020 T3, Total, S ? T3, Total 138 NG/dL 97-169 Fi nal North Serum NG/dL [facility] (Internal) : [address] 04/03/2018 Rapid Strep THRT - Final microbiology ? Fi nal North Group a, results [facility] Hospital L ab (Internal) : [address] ? Venipuncture ? Location Right ? ? P _nc Primary Antecubital [facility] [place]: [address], [place] ? ? ? Needle 21g ? ? P_nc Prim jacqueline Vacutainer Care [place]: [address], [place] ? ? ? Number of 1 ? ? P_nc P rimary Attempts Care [place]: [address], [place] ? ? ? Successful Yes ? ? P_nc Primary Care [place]: [address], [place] ? ? ? Dressing Pressure ? ? P_nc Primary Band-aid Care [facility] [place]: [address], [place] ? ? ? Initials hj ? ? P_nc Pr imary Care [place]: [address], [place] ? Venipuncture ? Location Right ? ? P _nc Primary Antecubital Care [place]: [address], [place] ? ? ? Needle 21g ? ? P_nc Prim jacqueline Vacutainer Care [place]: [address], [place] ? ? ? Number of 1 ? ? P_nc P rimary Attempts Care [place]: [address], [place] ? ? ? Successful Yes ? ? P_nc Primary Care [place]: [address], [place] ? ? ? Dressing Pressure ? ? P_nc Primary Band-aid Care [facility] [place]: [address], [place] ? ? ? Initials hj ? ? P_nc Pr imary Care [place]: [address], [place] ? Venipuncture ? Location Left ? ? P _nc Primary Antecubital Care [place]: [address], [place] ? ? ? Needle 21g ? ? P_nc Prim jacqueline Vacutainer Care [place]: [address], [place] ? ? ? Number of 1 ? ? P_nc P rimary Attempts Care [place]: [address] ? ? ? Successful Yes ? ? P_nc Primary Care [place]: [address] ? ? ? Dressing Pressure ? ? P_nc Primary Band-aid Care Applied [place]: [address] ? ? ? Initials HJ ? ? P_nc Pr imary Care [place]: [address] Past Encounters 03/15/2021 Degeneration of Lumbar Intervertebral Di sc; Hyperlipidemia; Actinic Keratosis; Eczema Tri Zee MD: [address] [place] [phone], Ph. 03/01/2021 Hyperlipidemia Tri Zee MD: [address] [place] [phone], Ph. 10/06/2020 Gynecologic Examination Jamila Spann, [employer]: [address] [place] [phone], Ph. 09/15/2020 Screening Mammography; Hyperlipidemia; H ypothyroidism Jamila Spann, [employer]: [address] [place], [place] [address]e t, [place] [phone], Ph. 09/01/2020 Hyperlipidemia Tri Zee MD: [address] [place] [phone], Ph. 03/03/2020 Adult Health Examination; Screening [place] noscopy; Hypothyroidism; Hyperlipidemia; Migraine Tri Zee MD: [address] [place] [phone], Ph. 02/25/2020 Hypothyroidism Tri Zee MD: [address] [place] [phone], Ph. Social History Tobacco Smoking Status Former Smoker Notes: quit sm oking in 2011started as a kid, smoked 1 PPD, q uite 7 years in between. Vaccine List Vaccine Type COVID-19, mRNA, LNP-S, PF, 30 mcg/0.3 mL dose ([place]) 10/26/2020 11/16/2020 05/26/2021 influenza, injectable, quadrivalent 06/21/2020?0.7 mL influenza, seasonal, injectable 06/21/2011 05/05/2017 Tdap 04/22/2019 Plan of Care Reminders Provider Appointments None ? ? recorded. Lab None ? ? recorded. Referral None ? ? recorded. Procedures None ? ? recorded. Surgeries None ? ? recorded. Imaging None ? ? recorded. Vitals 03/15/2021 09:40AM Follow Up 20 Height Weight BMI Blood Pressure 157.48 cm 73.48 kg 29.6 kg/m2 150/82 mm[Hg] 03/01/2021 08:00AM Nurse 20 Height 157.48 cm 10/06/2020 02:00PM Follow Up 20 Height Weight BMI Blood Pressure 157.48 cm 73.14 kg 29.5 kg/m2 124/74 mm[Hg] 09/15/2020 11:20AM Follow Up 20 Height Weight BMI Blood Pressure 157.48 cm 71.72 kg 28.9 kg/m2 134/80 mm[Hg] 03/03/2020 02:00PM AWV 20 Height Weight BMI Blood Pressure 157.48 cm 74.05 kg 29.9 kg/m2 128/76 mm[Hg] 08/30/2019 03:40PM New Patient 40 Height Weight BMI Blood Pressure 157.48 cm 70.31 kg 28.3 kg/m2 132/72 mm[Hg]
--- NOTE | 2021-08-17 13:38 | ED.GENADUL_ITS ---
Discharge Plan Disposition Patient Disposition: HOME Condition: Improving Discharge Details Clinical Impression: Otalgia of left ear Primary Care Provider: Rene Seymour ED Provider: Kurt Arce Home Meds and New Rx's Prescriptions: Continued ibuprofen 600 MG tablet 600 mg PO PRN RF: 0 nqhdrqmrdi-lzewquo-avxariho 50-325-40 mg Capsule 1 cap PO QID PRN PRNRF: 0 acetaminophen 325 mg Capsule 325 mg PO PRN PRNRF: 0 Discharge Instructions Instructions: Earache (ED) Additional Instructions: May use Benadryl 25 to 50 mg at bedtime to help with decongestion for the next 4 to 5 days time if needed. Continue normal routine and activities. Continue your normal medications. Return to the ER if you develop fever, worsening discomfort, or any other acute concerns. Medical Decision Making 66-year-old female with foreign body sensation left ear she thought white be an insect. She has had no illness. Her exam shows mild inner ear congestion but no other significant findings. She states that she feels improved knowing that none is there. We will trial a small amount of Benadryl at bedtime as needed for persistent congestion. She is stable and appropriate for discharge at this time. HPI General Mode of arrival: ambulatory . Date/Time Provider Initiated Documentation: 08/17/21 13:26 . Limitations to Documentation: no limitations . Information obtained by: patient . History of Present Illness 66 year old F presents to the emergency department with the chief complaint of Foreign body sensation left ear, described as moderate, and is localized to the head and left. Patient started experiencing this day(s) and it has been intermittent. No relieving factors improve symptom(s), No exacerbating factors reported . Patient notes denies fever/chills and headaches. Patient did receive the following treatments prior to arrival, none Related Data Home Medications Medication Instructions Recorded Confirmed ibuprofen 600 mg PO PRN tab-cap 11/14/17 08/17/21 eyzrhpatzv-xsheaei-ecjgkbxo 1 cap PO QID PRN PRN 07/04/18 08/17/21 acetaminophen 325 mg PO PRN PRN 04/24/19 08/17/21 Allergies Allergy/AdvReac Type Severity Reaction Status Date / Time codeine AdvReac Unverified 08/17/21 13:27 General Stated Complaint: EarProblem DENYS: 4 Review of Systems Narrative: Denies recent illness, no sinus pressure, no sore throat and denies fever. Hearing intact. 6 systems reviewed and otherwise negative PFSH All Active Problems (Updated 08/17/21 @ 13:41 by Kurt Arce MD) Otalgia of left ear (Acute) Social History Smoking/Tobacco Use Status: Former Tobacco Use Smoking risk assessment performed?: Yes Alcohol Intake: current Alcohol Intake frequency: a few times a week Drug use: Never Do you feel safe in your relationship?: Yes Exam Narrative Exam Narrative: GEN: awake, alert, oriented 3. Pleasant, well groomed, interactive. HEAD: Normocephalic, atraumatic ENT: Mucous membranes moist, oropharynx unremarkable, left tympanic membrane with slight fluid and distention noted, no erythema and no loss of light reflex. Right tympanic membrane unremarkable. External ear exam unremarkable EYES: PERRL, EOMI NECK: Full ROM, no GENNY, no menigismus CHEST/RESP: Nontender, clear to auscultation bilateral, no wheeze/rhonchi/rales CARDIOVASCULAR: RRR, no murmur, rub shaquille. 2+ Rad pulse bilateral Neuro: Grossly normal neurologic exam, conversant, interactive. Psych: Speech fluent, thoughts congruent, affect normal Course Vital Signs Vital signs: Vital Signs Temperature 36.6 C 08/17/21 13:22 Pulse 56 L 08/17/21 13:22 Respiratory Rate 16 08/17/21 13:22 Blood Pressure 159/75 H 08/17/21 13:22 Pulse Oximetry 98 08/17/21 13:22 Temperature 36.6 C 08/17/21 13:22 Temperature Source Skin 08/17/21 13:22 Pulse 56 L 08/17/21 13:22 Respiratory Rate 16 08/17/21 13:22 Respiratory Effort 08/17/21 13:26 Blood Pressure 159/75 H 08/17/21 13:22 Blood Pressure Position Sitting 08/17/21 13:22 Pulse Oximetry 98 08/17/21 13:22 Oxygen Delivery Method Room Air 08/17/21 13:22 Oxygen Flow Rate 0 08/17/21 13:22 Pain Level 7 08/17/21 13:22 PAWSS Have you Been Recently Intoxicated or Drunk Within the Last 30 days?: No Have you Ever Experienced Previous Episodes of Alcohol Withdrawal?: No Have you ever Experienced Withdrawal Seizures?: No Have you ever Experienced Delirium Tremens(DT)s?: No Have you ever undergone Alcohol Rehabilitation Treatment (i.e, inpt ot outpatient treatment programs)?: No Have you ever Experienced Blackouts?: No Have you ever Combined Alcohol with other Downers within the last 90 days?: No Have you ever Combined Alcohol with any other Substance of Abuse during the last 90 days?: No Positive Blood Alcohol level on Presentation? [PCS.BAL]: No Evidence of Increased Autonomic Activity (i.e. HR>120, tremor, sweating, agitation, nausea)?: No Result: 0
== END 2021-08-17 13:53 | disposition home or self-care (01) ==
PROVIDERS: Emergency Provider Emergency Medicine; PCP Family Medicine
DX: H92.02 Otalgia, left ear (principal)
CPT/HCPCS: 99282

== ENCOUNTER → 2022-09-28 13:54 | Outpatient (BNVA) | payer MEDICARE, MEDICAID, SELFPAY | PROVIDERS: PCP Physician Assistant Medical; Referring Provider Physician Assistant Medical; Visit Provider Surgery | DX: K52.9 Noninfective gastroenteritis and colitis, unspecified (principal) | CPT/HCPCS: 99214 ==

== ENCOUNTER 2022-10-13 10:21 | Day surgery (SDC) | payer MEDICARE, MEDICAID, SELFPAY ==
--- NOTE | 2022-10-12 21:50 | W.PM.DSUDISC ---
Date of service: 10/13/22 Time of Service: 12:51 Discharge Plan Disposition Patient Disposition: Home Condition: Good Discharge Details Reason For Visit: colonoscopy Attending Provider: Matteo Lyn Primary Care Provider: Michael Johnson Home Meds and New Rx's Prescriptions: Continued ibuprofen 600 MG tablet 600 mg PO PRN ondansetron HCl 4 mg tablet 4 mg PO Q8H uoryysqeks-xajxyss-edsrbcyr 50-325-40 mg Capsule 1 cap PO QID PRN PRN acetaminophen 325 mg Capsule 325 mg PO PRN PRN Discontinued polyethylene glycol 3350 17 gram/dose powder 238 g PO ONCE Qty: 238 0RF Rx Instructions: take per colonoscopy instructions bisacodyl [Dulcolax (bisacodyl)] 5 mg tablet,delayed release (DR/EC) 5 mg PO ONCE Qty: 4 0RF Rx Instructions: take per colonoscopy instructions Discharge Instructions Instructions: Diverticulosis (GEN), Diverticulosis Diet (GEN), Rectal Bleeding (GEN) Additional Instructions: Sunshine I was able to complete your colonoscopy all the way to your terminal ileum without any difficulty today. You have sigmoid diverticulosis. Otherwise the colon appeared totally normal. I did perform biopsies and multiple random places, focusing on the areas of abnormality seen on your CAT scan. Once I have the results of those biopsies I will let you know. 1. If tolerated, consume a soft, low fiber diet for 1-2 days. 2[address] Do not drive, drink alcohol, operate machinery, make critical decisions, or do activities that require coordination or balance for 24 hours. 3. Because air was put into your colon during the procedure, expelling air from your rectum (passing gas or farting) is normal. 4. You may not have a bowel movement for 1-3 days because of the colonoscopy prep. This is normal. 5. Go directly to the emergency room if you notice any of the following: Develop chills (warm to touch), or if you have a thermometer and your temperature is above 101 Difficulty breathing or difficultly swallowing Persistent vomiting Severe abdominal pain, other than gas cramps Severe chest pain Black, tarry stools Any bleeding ? exceeding one tablespoon 6. Call your physician if the site where your intravenous was started becomes red, swollen, painful, and warm to touch. 7. Your physician has reviewed your pre-procedure medications. Please continue to take those medications as previously ordered. You will be given specific information/education regarding any changes to your medications before leaving. Activity:: Activity as Tolerated Diet:: As Tolerated Discharge Orders Discharge Orders: Discharge Order (Routine); Ordered 10/12/22 Ordered By: Matteo Lyn DS: Diagnosis Discharge Diagnosis (1) Colitis: Status: Acute Asessment and Plan: Follow-up on biopsy results
--- NOTE | 2022-10-12 21:52 | W.COLOREPORT ---
Date of service: 10/13/22 Time of Service: 12:48 Colonoscopy Report Date of procedure: 10/13/22 Pre-op diagnosis general: Colitis Post-op diagnosis procedure note: other (Diverticulosis) Procedure: Colonoscopy with random biopsies Surgeon: Matteo Lyn Anesthesia Type: General:No Airway Estimated blood loss (mL): 15 Pathology: other (Biopsies of the transverse and descending colon, as well as the sigmoid colon.) Complications: None Disposition: same day Indications: Sunshine is a 67-year-old woman with a recent episode of bright red blood per rectum. Prep: Miralax/Dulcolax Procedure Start Time: :23 Procedure End Time: 12:42 Retraction Time: 14 Findings: Diverticulosis Procedure Description: After the induction of monitored anesthetic care, and with the patient in left lateral decubitus position, I began by performing an external anorectal exam.? Perineum and skin were normal, as was the anal verge.? There was no not evidence of external hemorrhoids.? Next, I performed a digital rectal exam.? I did appreciate any abnormal findings.? Next, I advanced a colonoscope into the rectal vault. Using insufflation, I then advanced the colonoscope beyond the rectal folds and into the sigmoid colon before advancing towards the cecum.? There was sigmoid diverticulosis. The quality of the prep was excellent.? The scope was noted to be in the cecum by identification of the ileocecal valve and appendiceal orifice.? I then began withdrawing the colonoscope using repeated irrigation as necessary for full evaluation of the colonic mucosa. The lumen of the cecum and ascending colon appeared totally normal. There was no inflammation. I did not see any signs of AV malformations. The transverse colon also appeared normal, but since there was abnormality suggested on CAT scan, I did perform random biopsies of the transverse and descending colon. The length of the descending colon was grossly normal. Along the sigmoid colon, again, I did notice some diverticulosis. The colonic wall otherwise appeared normal. I did perform some random biopsies of the sigmoid colon near the rectosigmoid junction. Once the scope was withdrawn to the level of the rectum, great care was taken to examine portions of the rectal folds.? Finally, the scope was withdrawn and the patient was brought to the same-day surgery recovery unit as the anesthetic wore off. ?The findings and instructions were shared with the patient prior to discharge.
[2022-10-13 10:55] VITALS: BP 139/72; PULSE 63; RESP 16; TEMP 36; O2SAT 96
[2022-10-13] MEDS: Lactated Ringers 1,000 ML 80 ML IV (11:20)
--- NOTE | 2022-10-13 12:40 | BOWEL_PTH ---
PATIENT: Sunshine Weber LOC: [facility] U#:[id number] AGE/SX: 67/F ROOM: RE10/13/[address]: Matteo Lyn MD : 1955 BED: DIS: 10/13/2022 SPEC #: [id number] RECD: 10/13/22 17:35 STATUS: [facility]ANNI REQ #: [id number] ADRIANE: 10/13/22 12:[address]: Matteo Lyn DEPT: Surgical Specimen RECD BY: Daija Love ENTERED: 10/13/22 17:36 SP TYPE: Bowel OTHR DR: Michael Johnson Tissues: 1 - BIOPSY BOWEL Procedures: GROSS AND MICRO LEVEL 4 Comments: [id number]
[2022-10-13 12:45] VITALS: BP 111/74; PULSE 74; RESP 16; TEMP 36.2; O2SAT 96
[2022-10-13 13:00] VITALS: BP 118/76; PULSE 76; RESP 18; TEMP 36.5; O2SAT 98
--- NOTE | 2022-10-13 13:09 | W.ANESPOSTOP ---
Postoperative Evaluation Date, Time and Location Date Performed: 10/13/22 Time Performed: 13:09 Patient Location: Day Surgery Unit Vital Signs Most Recent Imported Vital Signs: Most Recent Vital Signs Temp Pulse Resp BP Pulse Ox 36.2 C L 74 16 111/74 96 10/13/22 12:45 10/13/22 12:45 10/13/22 12:45 10/13/22 12:45 10/13/22 12:45 Pain Score Most Recent Pain Score: Most Recent Pain Score Pain Level 0 10/13/22 12:45 Assessment Mental Status: Awake (Alert & Oriented to Patient Baseline) Airway and Respiratory Function: Patent airway with normal (patient baseline) respiratory exam Cardiovascular Function: Hemodynamically Stable Hydration Status: Adequately Hydrated Nausea & Vomiting: No Nausea or Vomiting Pain: Pt. Denies Any Pain Peripheral Nerve Block: Patient did not receive a nerve block
--- NOTE | 2022-10-13 14:25 | W.ANESPRE ---
General Info Date of Service Date Performed: 10/13/22 Height: 5 ft 2 in Weight: 66.1 kg Body Mass Index (BMI): 26.6 Surgical Procedure: Operation Date: 10/13/22 12:05 Proposed Procedure Side Surgeon p Colonoscopy w/Biopsy Matteo Lyn MD Actual Procedure Side Surgeon p Colonoscopy w/Biopsy Not Applicable Matteo Lyn MD Pre-Op Diagnosis Post-Op Diagnosis colitis rare diverticulosis Meds Allergies and Home Medications Allergies Allergy/AdvReac Type Severity Reaction Status Date / Time No Know allergies Allergy Unknown Uncoded 10/13/22 11:08 Home Medication Medication Instructions Recorded ibuprofen 600 mg tablet 600 mg PO PRN 11/14/17 jbuzuyuwwb-oofhksd-mluktcea 50 1 cap PO QID PRN PRN 07/04/18 mg-325 mg-40 mg capsule acetaminophen 325 mg capsule 325 mg PO PRN PRN 04/24/19 ondansetron HCl 4 mg tablet 4 mg PO Q8H 09/19/22 PFS Active Problems Active Problems: Problem Status Onset Code Abnormal CT scan R93.89 Colitis K52.9 Medical History Medical History Arthritis Migraines Surgical History Surgical History (Updated 10/13/22 @ 11:07 by Beth Lopes, RN) History of colonoscopy done at 49 years. Normal Hx of shoulder surgery Tobacco Smoking/Tobacco Use Status: Former Tobacco Use Alcohol Alcohol Intake: current Alcohol intake frequency: holidays/special occasions only Substance Use Substance use: Never Substance use type: does not use Vital Signs and Lab Results Vital Signs Most Recent Vital Signs in EMR: Most Recent Vital Signs Temp Pulse Resp BP Pulse Ox 36.2 C L 74 16 111/74 96 10/13/22 12:45 10/13/22 12:45 10/13/22 12:45 10/13/22 12:45 10/13/22 12:45 Lab Results Blood Type / Crossmatch: No Data to Display Complete Blood Count: No Data to Display Complete Metabolic Panel: No Data to Display Liver Function Panel: No Data to Display Coagulation Panel: No Data to Display Cardiac Panel: No Data to Display Arterial Blood Gas: No Data to Display Venous Blood Gas: No Data to Display Pancreas Panel: No Data to Display Thyroid Panel: No Data to Display Infectious Disease: No Data to Display Blood Cultures: No Data to Display Toxicology Panel: No Data to Display Anesthesia Assessment and Plan Anesthesia History Personal History: No History of Anesthesia Complications Family History: No Family History of Anesthesia Complications Exercise Tolerance Exercise Tolerance: Metabolic Equivalents>4 Pertinent Negatives Pertinent Negatives: No Symptoms of GERD, No Major Cardiovascular Symptoms or Complaints, No Major Pulmonary Symptoms or Complaints and No History of CVA/TIA Cardiac & Pulmonary Exam Cardiac Exam: Normal S1/S2 Heart Sounds Pulmonary Exam: Clear Bilateral Breath Sounds Implantable Cardiac Device Does patient have a Pacemaker or an ICD?: No Airway Exam Known Difficult Airway: No Mallampati Class: 2 Mouth Opening: Normal (> 3cm) Thyromental Distance: Greater than 3 cm Neck Range of Motion: Full ROM Neck Circumference: Normal Teeth Condition: Normal Dentition ASA Classification ASA Score: ASA 2 Emergency Case?: No NPO Status NPO Status: NPO Clears >2 hours, Solids >8 hours Anesthesia Plan Resuscitation Status: Full Code Anesthesia Technique: General Anesthesia Airway Planned: Natural Airway Monitors Used: Standard Monitors
[2022-10-13 14:26] VITALS: BMI 26.6
== END 2022-10-13 13:55 | disposition home or self-care (01) ==
LOC: SUR 10:22
PROVIDERS: PCP Physician Assistant Medical; Visit Provider Surgery
PROC: 0DJD8ZZ Inspection of Lower Intestinal Tract, Via Natural or Artificial Opening Endoscopic (ICD-10-PCS; CPT 45378; principal; 2022-10-13 12:00)
DX: K52.9 Noninfective gastroenteritis and colitis, unspecified (principal); K57.30 Diverticulosis of large intestine without perforation or abscess without bleeding
CPT/HCPCS: 45380; 88305

== ENCOUNTER → 2022-10-26 14:01 | Outpatient (BNVA) | payer MEDICARE, MEDICAID, SELFPAY | PROVIDERS: PCP Physician Assistant Medical; Referring Provider Physician Assistant Medical; Visit Provider Surgery | DX: Z48.815 Encounter for surgical aftercare following surgery on the digestive system (principal) | CPT/HCPCS: 99212 ==

== ENCOUNTER 2022-10-28 00:33 | Outpatient (CLI) | payer MEDICARE, MEDICAID, SELFPAY ==
--- NOTE | 2022-10-28 14:31 | DI.RAD_ITS ---
Exam(s) XR HAND LT COMPLETE EXAM: XR HAND LT COMPLETE CLINICAL HISTORY: Increased lt thumb pain, proximal joint,M79.645. TECHNIQUE: 2D digital imaging was performed of the left hand. Three views were obtained. AP, later al and oblique views were obtained. COMPARISON: No exams were available for comparison FINDINGS: BONES: No acute fracture is present. No bony destructive lesion is seen. JOINTS: No dislocation present. Degenerative changes are seen in the hand particularly at the interph alangeal joints of the fingers. Mild hypertrophic changes are seen at the interphalangeal joint of t he thumb. SOFT TISSUE: Normal. IMPRESSION: Minimal degenerative changes at the interphalangeal joint of the thumb. DATA REPOSITORY: RADIATION DOSE DELIVERED:
== END 2022-10-28 00:53 ==
LOC: DI 00:33
PROVIDERS: PCP Physician Assistant Medical; Visit Provider Nurse Practitioner Family
DX: M19.042 Primary osteoarthritis, left hand (principal)
CPT/HCPCS: 73130

== ENCOUNTER 2023-03-30 01:19 | Outpatient (CLI) | payer MEDICARE, MEDICAID, SELFPAY ==
--- NOTE | 2023-03-30 06:27 | DI.CTLCSR_ITS ---
Exam(s) CT CHEST LUNG CANCER SCREEN EXAM: CT CHEST LUNG CANCER SCREEN CLINICAL HISTORY: Screening for lung cancer,former smoker, z87.891 TECHNIQUE: Imaging Protocol: Axial computed tomography images with coronal and sagittal reformatted images were created and reviewed COMPARISON: CT CT CHEST PE CTA from 04/22/2019 FINDINGS: Tracheobronchial tree: Patent where visualized. Pulmonary parenchyma: Centrilobular emphysematous changes are present. No focal consolidating infilt rates. Lung Nodules: None. Mediastinum and Corazon: No dominant adenopathy or fluid collection. The esophagus is unremarkable. Thyroid gland: Unremarkable. Lymph nodes: Unremarkable. Pleura: No effusion or pneumothorax. Heart: The heart is not dilated. Moderate coronary artery calcification is present. No pericardial ef fusion. Aorta: Thoracic aorta non-dilated.Atherosclerosis. Upper abdomen: Stable hepatic calcifications are seen. Soft Tissues: Unremarkable. Bones: Within normal limits. IMPRESSION: No pulmonary nodules. Lung RADS Cat 1 - Negative: No nodules and definitely benign nodules Lung-RADS 1.0 CATEGORIES: Category 0 - Prior chest CT exam(s) being located for comparison. Category 1 - Annual screening in 12 months. No nodules or definitely benign nodules. Category 2 - Annual screening in 12 months. Benign appearance. Nodules with low likelihood of becomin g active cancer. Category 3 - 6-month follow-up. Probably benign. Short-term follow-up suggested. Nodules with low lik elihood of becoming active cancer. Category 4A - 3-month follow-up and CT/PET if >8 mm in size. Suspicious finding. Findings which requi re additional testing. Category 4B - Findings which require additional testing and tissue sampling. Suspicious finding. Category 4X - Category 3 or 4 nodules with additional features or imaging findings that increases the suspicion of malignancy. Modifier S- Potentially clinically significant finding. (Non lung cancer) RADIATION DOSE DELIVERED: 70.36mGy.cm Total DLP 70.36mGy.cmTotal DLP DATA REPOSITORY: All CT scans at this facility are submitted to the National Radiology Data Registry (NRDR) Dose Index Registry (DIR) with the [employer] ([employer]). RADIATION OPTIMIZATION: All CT scans at this facility use at least one of these dose optimization te chniques: automated exposure control; mA and/or kV adjustment per patient size (includes targeted exa ms where dose is matched to clinical indication); or iterative reconstruction.
--- NOTE | 2023-03-30 06:27 | DI.DEXA_ITS ---
Exam(s) XR DEXA BONE DENSITY W/WO WILL EXAM: XR DEXA BONE DENSITY W/WO WILL CLINICAL HISTORY: osteoporosis screening in postmenopausal woman,z78.0 TECHNIQUE: COMPARISON: No exams were available for comparison FINDINGS: Lateral Spine Image: Unremarkable. No compression deformities identified. Left hip: Total T-Score: -1.1 Total Z-Score: 0.4 T- and Z-scores: Findings are consistent with osteopenia. Lumbar Spine: Total T-Score: -0.9 Total Z-Score: 1.1 T- and Z-scores: Within normal limits. IMPRESSION: No evidence of osteoporosis.
== END 2023-03-30 01:39 ==
LOC: DI 01:19
PROVIDERS: PCP Nurse Practitioner Family; Visit Provider Nurse Practitioner Family
DX: Z13.820 Encounter for screening for osteoporosis (principal); Z78.0 Asymptomatic menopausal state; Z12.2 Encounter for screening for malignant neoplasm of respiratory organs; Z87.891 Personal history of nicotine dependence
CPT/HCPCS: 71271; 77080

== ENCOUNTER → 2023-04-06 02:54 | Outpatient (CLI) | payer MEDICARE, MEDICAID, SELFPAY | PROVIDERS: PCP Nurse Practitioner Family; Visit Provider Nurse Practitioner Family | DX: Z78.0 Asymptomatic menopausal state (principal); Z12.31 Encounter for screening mammogram for malignant neoplasm of breast | CPT/HCPCS: 77063; 77067 ==

== ENCOUNTER 2023-06-24 21:28 | Emergency (ER) | payer MEDICARE, MEDICAID, SELFPAY ==
[2023-06-24 21:31] VITALS: BP 180/62; PULSE 89; RESP 20; TEMP 36.3; O2SAT 98
--- NOTE | 2023-06-24 22:10 | ED.GENADUL_ITS ---
Discharge Plan Disposition Patient Disposition: Home Discharge Details Clinical Impression: Leg injury, Bruising Primary Care Provider: Clara Wong ED Provider: Lazara Brewer Home Meds and New Rx's Prescriptions: No Action sumatriptan succinate 50 mg tablet 50 mg PO ONCE MDD 2 pills PRN (Reason: migraine headache) Qty: 30 1RF Rx Instructions: Take one tab at onset of headache. May repeat in 2 hour if no relief. ibuprofen 600 MG tablet 600 mg PO PRN lidocaine 5 % ointment 1 applic topical QID [id number] 50-325-40 mg Capsule 1 cap PO QID PRN PRN acetaminophen 325 mg Capsule 325 mg PO PRN PRN Discharge Instructions Instructions: Contusion in Adults (ED) Additional Instructions: apply aquaphor or antibiotic ointment to the wound keep leg elevated as much as possible bruising will go away in a few weeks Medical Decision Making Emergent evaluation left leg injury. Initial differential includes dependent bruising, fracture, no evidence of infection. Given repeat history of osteopenia, will obtain x-ray to evaluate for fracture. Tetanus is up-to-date. X-ray unremarkable for acute process. Recommended continued supportive care. HPI General Date/Time Provider Initiated Documentation: 06/24/23 21:31 . Limitations to Documentation: no limitations . Information obtained by: patient . HPI Narrative: 68-year-old female with past medical history of osteopenia, migraine presents for evaluation of left leg bruising. She reports that 4 days ago she injured her left lower leg on a metal dumpster. It hit against her leg and caused a very large firm bruise. Over the next several days that bruise got smaller and she noted bruising down in the lower part of her leg and foot. She reports some tenderness and pain particularly with walking in the anterior whitaker. She does not have any pain around the bruising in the ankle or foot Related Data Home Medications Medication Instructions Recorded Confirmed ibuprofen 600 mg tablet 600 mg PO PRN 11/14/17 06/24/23 [id number]-iloppue-utzqkwom 50 1 cap PO QID PRN PRN 07/04/18 06/24/23 mg-325 mg-40 mg capsule acetaminophen 325 mg capsule 325 mg PO PRN PRN 04/24/19 06/24/23 lidocaine 5 % topical ointment 1 applic topical QID 12/14/22 06/24/23 sumatriptan succinate 50 mg tablet 50 mg PO ONCE PRN migraine 01/19/23 06/24/23 headache #30 tab-caps Previous Rx's Medication Instructions Recorded sumatriptan succinate 50 mg tablet 50 mg PO ONCE PRN migraine 01/19/23 headache #30 tab-caps Allergies Allergy/AdvReac Type Severity Reaction Status Date / Time codeine Allergy Unknown Unverified 06/24/23 21:35 No Know allergies Allergy Unknown Uncoded 06/24/23 21:35 General Stated Complaint: Cellulitis DENYS: 4 PFSH All Active Problems Bruising (Acute) Leg injury (Acute) Hyperlipidemia (Chronic) Degenerative joint disease (DJD) of lumbar spine (Chronic) Migraine headache with aura (Chronic) Insomnia (Chronic) Psoriasis (Chronic) Sigmoid diverticulosis (Chronic) Osteopenia (Chronic) Former cigarette smoker (Chronic) Annual LDCT Medical History Syncope Rectal bleeding Surgical History S/P right rotator cuff repair Hx of cataract surgery Hx of colonoscopy (10/13/22) Family History Mother , 52 of car accident Alcohol use disorder Father , 72 Malignant melanoma of skin Sister Diabetes Sister No problems noted. Sister No problems noted. Brother Dementia Brother No problems noted. Brother No problems noted. Brother , lost at sea in [place] No problems noted. Son No problems noted. Son No problems noted. Maternal Grandfather , 92 No problems noted. Maternal Grandmother No problems noted. Paternal Grandfather No problems noted. Paternal Grandmother No problems noted. Social History Smoking/Tobacco Use Status: Former Tobacco Use tobacco type: cigarettes Quit Date: 08/21/12 Tobacco: How many years used: 40 Second Hand Exposure: Yes Smoking risk assessment performed?: Yes Alcohol Intake: current Alcohol Intake frequency: a few times a week Alcohol type: beer Drug use: Socially Substance use type: marijuana Caregiver/Support person: No Household members: none Do you need help understanding health information?: Never Pets and animals: No Sexually active: No Do you think of yourself as: straight/heterosexual Current gender identity: female What is your relationship status?: How often do you talk on the phone with friends or family?: twice per week How often do you get together with friends or relatives?: three or more times per week How often do you attend adventist or taoist services?: decline to answer Do you belong to any clubs or organized social groups?: no Panel score (0-1 are the most socially isolated patients): 1 What type of physical activity do you participate in: none Frequency: does not exercise Lizette/Methodist: Worship Special lizette needs: No Seatbelt use: always Helmet use: Yes Helmet use: always Drive intox or ride w/intox trailer tank truck driver: No Do you feel safe at home: Yes Do you feel safe in your relationship?: Yes Additional Social history: lives alone Exam Narrative Exam Narrative: Review of Systems: All systems reviewed & are unremarkable except as noted in HPI and below Well-developed, no acute distress NACT PERRL, normal conjunctiva RRR Unlabored respiratory effort Nondistended abdomen Left lower extremity with wound to the anterior whitaker, healing. Some surrounding erythema without evidence of infection. Calf not swollen or tender. Bruising in a dependent fashion noted down the leg particularly along the medial foot. There is no tenderness of the lateral or medial malleolus, no tenderness of the foot. No rashes or lesions. no focal neurologic deficits Appropriate mood and affect Course Vital Signs Vital signs: Vital Signs Temperature 36.3 C L 06/24/23 21:31 Pulse 89 06/24/23 21:31 Respiratory Rate 20 06/24/23 21:31 Blood Pressure 180/62 H 06/24/23 21:31 Pulse Oximetry 98 06/24/23 21:31 Temperature 36.3 C L 06/24/23 21:31 Temperature Source Skin 06/24/23 21:31 Pulse 89 06/24/23 21:31 Respiratory Rate 20 06/24/23 21:31 Respiratory Effort Normal, Non-Labored 06/24/23 21:35 Blood Pressure 180/62 H 06/24/23 21:31 Blood Pressure Position Sitting 06/24/23 21:31 Pulse Oximetry 98 06/24/23 21:31 Oxygen Delivery Method Room Air 06/24/23 21:31 Oxygen Flow Rate 0 06/24/23 21:31 Pain Level 3 06/24/23 21:31
--- NOTE | 2023-06-24 22:15 | DI.RAD_ITS ---
Exam(s) XR TIB/FIB LT EXAM: XR TIB/FIB LT CLINICAL HISTORY: leg pain. TECHNIQUE: 2D digital imaging was performed of the left tibia and fibula. Two images were obtained. AP and lateral views were obtained. COMPARISON: No exams were available for comparison FINDINGS: BONES: No acute fracture is present. No bony destructive lesion is seen. Visualized portion of knee a nd ankle joints are unremarkable. SOFT TISSUE: Normal. IMPRESSION: Unremarkable radiographs of the left tibia and fibula. DATA REPOSITORY: RADIATION DOSE DELIVERED:
--- NOTE | 2023-06-24 23:23 | DI.VRAD_ITS ---
PROCEDURE INFORMATION: Exam: XR Left Tibia and Fibula Exam date and time: 06/24/2023 10:10 PM Age: 68 years old Clinical indication: Pain; Lower leg; Left TECHNIQUE: Imaging protocol: Radiologic exam of the left tibia and fibula. Views: 2 views. COMPARISON: US LOWER EXTREMITY VENOUS LT 05/17/2019 1:56 PM FINDINGS: Bones/joints: Normal. Soft tissues: Normal. IMPRESSION: No acute findings. Dictated and Authenticated by: Rene Terry MD. Ordering:[facility] Osman Arellano MD
== END 2023-06-24 22:36 | disposition home or self-care (01) ==
LOC: ER 22:34 → RED 22:35 → ER 22:36
PROVIDERS: Emergency Provider Emergency Medicine; PCP Nurse Practitioner Family
DX: M79.662 Pain in left lower leg (principal); S89.92XA Unspecified injury of left lower leg, initial encounter; W22.8XXA Striking against or struck by other objects, initial encounter
CPT/HCPCS: 99283; 73590

== ENCOUNTER 2024-09-03 02:27 | Outpatient (CLI) | payer MEDICARE, MEDICAID, SELFPAY ==
--- NOTE | 2024-09-03 07:30 | DI.RAD_ITS ---
Exam(s) XR CHEST 2V PA LATERAL EXAM: XR CHEST 2V PA LATERAL CLINICAL HISTORY: cough,r05.9 TECHNIQUE: 2D digital imaging was performed. Two views. COMPARISON: CT CT CHEST LUNG CANCER SCREEN from 03/30/2023 FINDINGS: HEART: Normal size. Aorta: Not dilated. PULMONARY VASCULATURE: Normal. MEDIASTINUM: Unremarkable. LUNGS: Clear. PLEURAL SPACE: No pleural effusion or pneumothorax. BONE:Unremarkable for age. SOFT TISSUES: Unremarkable. IMPRESSION: No acute abnormality. DATA REPOSITORY: RADIATION DOSE DELIVERED:
== END 2024-09-03 02:47 ==
PROVIDERS: PCP Nurse Practitioner Family; Visit Provider Nurse Practitioner Family
DX: R05.9 Cough, unspecified (principal)
CPT/HCPCS: 36415; 80053; 80061; 82306; 85027; 86704; 86706; 86803; 87340; 87389; 71046; 83036

== ENCOUNTER 2024-09-03 03:23 | Outpatient (CLI) | payer MEDICARE, SELFPAY ==
[2024-09-03 12:03] LABS: HCT 38.7 % (36.0-46.0); HGB 12.4 g/dL (11.2-15.7); MCH 28.2 pg (27.0-33.0); MCV 88 fL (80-95); Platelet Count 338 10^3/uL (130-400); RDW 13.7 % (11.7-14.6); RDW-SD 44.4 fL; WBC 5.13 10^3/uL (4.4-10.8)
[2024-09-03 12:42] LABS: Hemoglobin A1C 5.6 % (<5.7)
[2024-09-03 12:49] LABS: ALT 19 U/L (14-59); AST 16 U/L (15-37); Albumin 3.5 g/dL (3.4-5.0); Alkaline Phosphatase 74 U/L (46-116); Anion Gap 9.2 mmol/L (3-11); BUN 21 mg/dL (7-18); Bilirubin, Total 0.39 mg/dL (0.2-1.0); CO2 24.8 mmol/L (21.0-32.0); CREATININE 0.9 mg/dL (0.55-1.02); Calcium 9.4 mg/dL (8.5-10.1); Calculated LDL 136 mg/dL (<100); Chloride 106 mmol/L (98-107); Cholesterol 228 mg/dL (<200); Estimated GFR 68.77 (mL/min/1.73m2); Glucose 103 mg/dL (74-106); HDL Cholesterol 82 mg/dL (40-60); Potassium 4.3 mmol/L (3.5-5.1); Sodium 140 mmol/L (136-145); Total Protein 7.5 g/dL (6.4-8.2); Triglyceride 53 mg/dL (<150); Vitamin D 25 Total 21.3 ng/mL (30-100)
[2024-09-03 19:37] LABS: HIV-1/2 Ag & Ab Screen Negative (Negative)
[2024-09-03 19:42] LABS: Hepatitis C Ab w Rflx HCV PCR Negative (Negative)
[2024-09-03 20:52] LABS: HBs Antibody, Quant 9.4 mIU/mL (See Note); Hep B Surface Ab Negative (See Note); Hepatitis B Core Antibody Negative (Negative); Hepatitis B Surface Antigen Negative (Negative)
== END 2024-09-03 03:24 | disposition home or self-care (01) ==
LOC: LBO 03:24
PROVIDERS: PCP Nurse Practitioner Family; Visit Provider Nurse Practitioner Family
DX: E78.5 Hyperlipidemia, unspecified (principal); M85.80 Other specified disorders of bone density and structure, unspecified site; L40.9 Psoriasis, unspecified; Z11.59 Encounter for screening for other viral diseases; Z11.4 Encounter for screening for human immunodeficiency virus [HIV]
CPT/HCPCS: 36415; 80053; 80061; 82306; 85027; 86704; 86706; 86803; 87340; 87389; 83036

== ENCOUNTER 2024-12-17 00:16 | Outpatient (CLI) | payer MEDICARE, MEDICAID, SELFPAY ==
--- NOTE | 2024-12-17 07:49 | DI.CTLCSR_ITS ---
Exam(s) CT CHEST LUNG CANCER SCREEN EXAM: CT CHEST LUNG CANCER SCREEN CLINICAL HISTORY: Screening for lung cancer,FORMER [employer] SMO[employer], Z87.891 TECHNIQUE: Imaging Protocol: Axial computed tomography images with coronal and sagittal reformatted images were created and reviewed. Lung Computer Aided Detection (CAD) was utilized. COMPARISON: CT CT CHEST LUNG CANCER SCREEN from 03/30/2023 CR XR CHEST 2V PA LATERAL from 09/03/2024 FINDINGS: Tracheobronchial tree: Patent where visualized. No bronchiectasis. Pulmonary parenchyma: No consolidation or dominant measurable mass. No architectural distortion. Ther e is a calcified granuloma in the left upper lobe. Mild centrilobular emphysematous changes are seen in the lungs. Lung Nodules: None. Mediastinum and Corazon: No dominant adenopathy or fluid collection. The esophagus is unremarkable. Thyroid gland: Unremarkable. Lymph nodes: Unremarkable. Pleura: No effusion or pneumothorax. Heart: The heart is not dilated. Coronary artery calcifications are present. No pericardial effusion . Aorta: Thoracic aorta non-dilated.Atherosclerotic calcifications are present. Upper abdomen: Stable hepatic parenchymal calcifications. Soft Tissues: Unremarkable. Bones: Within normal limits. IMPRESSION: No suspicious pulmonary nodules. Lung RADS Cat 1 - Negative: No nodules and definitely benign nodules Lung-RADS 1.0 CATEGORIES: Category 0 - Prior chest CT exam(s) being located for comparison. Category 1 - Annual screening in 12 months. No nodules or definitely benign nodules. Category 2 - Annual screening in 12 months. Benign appearance. Nodules with low likelihood of becomin g active cancer. Category 3 - 6-month follow-up. Probably benign. Short-term follow-up suggested. Nodules with low lik elihood of becoming active cancer. Category 4A - 3-month follow-up and CT/PET if >8 mm in size. Suspicious finding. Findings which requi re additional testing. Category 4B - Findings which require additional testing and tissue sampling. Suspicious finding. Category 4X - Category 3 or 4 nodules with additional features or imaging findings that increases the suspicion of malignancy. Modifier S- Potentially clinically significant finding. (Non lung cancer) RADIATION DOSE DELIVERED: 28.9mGy.cm Total DLP 28.9mGy.cmTotal DLP DATA REPOSITORY: All CT scans at this facility are submitted to the National Radiology Data Registry (NRDR) Dose Index Registry (DIR) with the [employer] (ACR). RADIATION OPTIMIZATION: All CT scans at this facility use at least one of these dose optimization te chniques: automated exposure control; mA and/or kV adjustment per patient size (includes targeted exa ms where dose is matched to clinical indication); or iterative reconstruction.
== END 2024-12-17 00:36 ==
PROVIDERS: PCP Nurse Practitioner Family; Visit Provider Nurse Practitioner Family
DX: Z87.891 Personal history of nicotine dependence (principal); J43.2 Centrilobular emphysema
CPT/HCPCS: 71271

== ENCOUNTER 2025-01-03 00:04 | Outpatient (CLI) | payer MEDICARE, SELFPAY ==
--- NOTE | 2025-01-03 09:00 | DI.MAMMO_ITS ---
Exam(s) MAMMO SCREENING EXAM: MAMMO SCREENING CLINICAL HISTORY: screening,Z12.39. TECHNIQUE: Bilateral full field digital CC and MLO mammographic images were obtained with 3D tomosyn thesis and utilizing computer aided detection (CAD). COMPARISON: Prior mammograms were reviewed. FINDINGS: There has been no significant change in the appearance and distribution of the fibroglandular tissue. There are no CAD designations. There are no new spiculated masses nor malignant appearing microcalcification groups. There is no significant architectural distortion nor skin thickening-retraction. IMPRESSION: No radiographic evidence of malignancy. BI-RADS Category 1 - Negative Breast Density - Category B - There are scattered areas of fibroglandular density. Breast density Category C or D implies that the patient has dense breast tissue. Dense breast tissue can make it harder to find cancer on a mammogram. Dense breast tissue is also associated with an incr eased risk of breast cancer. This information about the result of the mammogram report was provided to the patient to raise their awareness. Use this report when you speak with the patient about their risks for breast cancer, which includes their family history. At that time, you may recommend additional screening tests (Ultrasoun d or MRI) as these tests may add significant information. A negative radiographic report should not delay biopsy if a dominant or clinically suspicious mass is present. Up to ten percent of cancers are not identified on mammography. A negative report may reinforce clinical impression. Adenosis and dense breasts may obscure an underlying neoplasm. False positive reports average 6 to 10%. Patient will receive a letter notifying them of these results.
== END 2025-01-03 00:24 ==
LOC: DI 00:04
PROVIDERS: PCP Nurse Practitioner Family; Visit Provider Nurse Practitioner Family
DX: Z12.31 Encounter for screening mammogram for malignant neoplasm of breast (principal); R92.323 Mammographic fibroglandular density, bilateral breasts
CPT/HCPCS: 77063; 77067

== ENCOUNTER 2025-02-07 14:59 | Emergency (ER) | payer MEDICARE, SELFPAY ==
--- NOTE | 2025-02-07 15:00 | RT.EKG_ITS ---
APPROVED REPORT Exam: Resting ECG Reason for Exam: ed ekg Patient Location: E HR:58 bpm ECG Measurements Heart Rate 58 AXIS MN 161 P 55 QRSd 79 QRS 14 QT 461 T 53 QTc 453 Conclusion Sinus bradycardia, rate 58 No interval abnormalities No STEMI <1mm ST elevation, concave ST segment lead II, no priors available for comparison
[2025-02-07 15:31] VITALS: BP 165/83; PULSE 52; RESP 14; TEMP 36.8; O2SAT 97
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
[2025-02-07 17:42] LABS: Abs Immature Grans 0.04 10^3/uL (0.0-0.06); Absolute Basophil Count 0.03 10^3/uL (0.0-0.2); Absolute Eosinophil Count 0.09 10^3/uL (0.0-0.7); Absolute Lymphocyte Count 1.27 10^3/uL (1.2-3.4); Absolute Monocyte Count 0.31 10^3/uL (0.1-0.8); Absolute Neutrophil Count 6.64 10^3/uL (1.2-6.7); Basophils % 0.4 %; Eosinophils % 1.1 %; HCT 42.2 % (36.0-46.0); HGB 13.8 g/dL (11.2-15.7); Immature Grans % 0.5 %; Lymphocytes % 15.2 %; MCH 28.3 pg (27.0-33.0); MCHC 32.7 % (32.0-36.0); MCV 87 fL (80-95); MPV 9.9 fL (8.0-11.0); Monocytes % 3.7 %; Neutrophils % 79.1 %; Platelet Count 353 10^3/uL (130-400); RBC 4.88 10^6/uL (3.93-5.22); RDW 14.4 % (11.7-14.6); WBC 8.38 10^3/uL (4.4-10.8)
[2025-02-07] MEDS: Meclizine 25 MG TAB PO (17:48)
[2025-02-07] MEDS: Lactated Ringers 1,000 ML 1000 ML IV (17:48)
[2025-02-07] MEDS: ACETAMINOPHEN 1,000 MG/100 ML BAG 400 MG IVPB (17:48)
[2025-02-07] MEDS: Ondansetron 4 MG/2 ML VIAL IVP (17:48)
[2025-02-07] MEDS: Omnipaque 350 MG/ML 100 ML BTL 70 ML IJ (17:51)
[2025-02-07] MEDS: Normal Saline - Diluent 50 ML VIAL IJ (17:51)
[2025-02-07 17:53] LABS: Prothrombin Time 9.6 sec (9.1-11.1)
[2025-02-07 18:01] LABS: ALT 24 U/L (14-59); AST 17 U/L (15-37); Albumin 3.6 g/dL (3.4-5.0); Alkaline Phosphatase 86 U/L (46-116); Anion Gap 9.2 mmol/L (3-11); BUN 17 mg/dL (7-18); Bilirubin, Total 0.4 mg/dL (0.2-1.0); CO2 25.8 mmol/L (21.0-32.0); CREATININE 0.8 mg/dL (0.55-1.02); Calcium 9.3 mg/dL (8.5-10.1); Chloride 106 mmol/L (98-107); Estimated GFR 79.22 (mL/min/1.73m2); Glucose 103 mg/dL (74-106); Potassium 4.1 mmol/L (3.5-5.1); Sodium 141 mmol/L (136-145); Total Protein 7.9 g/dL (6.4-8.2); Troponin I 7 ng/L (<or=51)
--- NOTE | 2025-02-07 18:02 | DI.CT_ITS ---
Exam(s) CT BRAIN NECK CTA EXAM: CT BRAIN NECK CTA CLINICAL HISTORY: 12 hours persistent vertigo. TECHNIQUE: Imaging Protocol: Axial CT angiography was performed with multi- slice acquisition and multi-planar and/or 3D reconstructions. CONTRAST MATERIAL: Intravenous: Omnipaque 350 contrast volume:70 mL COMPARISON: CT HEAD WITHOUT CONTRAST from 10/11/2017 FINDINGS: CT Head W/O and W: Ventricles and Extra axial spaces: Normal in size and morphology for the patient's age. Hemorrhage: None. Cerebral parenchyma: There is no evidence of an acute territorial infarct. There is no mass effect. Midline shift: None. Brainstem/Cerebellum: Normal. Calvarium: Normal. Visualized Paranasal sinuses/Mastoids: Clear. Soft Tissues: Unremarkable. Enhancement: Unremarkable. CTA Neck W: Common Carotid: Right: No dissection, occlusion or significant stenosis. Left: No dissection, occlusion or significant stenosis. External Carotid: Right: No occlusion or significant stenosis. Left: No occlusion or significant stenosis. Internal Carotid: Right: No dissection, occlusion or significant stenosis. Mild atherosclerotic calcification is seen proximally with less than 50 percent stenosis. Left: No dissection, occlusion or significant stenosis. Minimal atherosclerotic calcification is seen proximally. No significant stenosis results. Vertebral Artery: Right: No dissection, occlusion or significant stenosis. Left: No dissection, occlusion or significant stenosis. Lung Apices: Mild emphysematous changes are present. Bones: Within normal limits for the patient's age. There is reversal of the normal cervical lordosis centered at C5. Soft Tissues: Normal. Thyroid gland: Unremarkable. CTA Brain W: Internal Carotid Arteries: Atherosclerotic calcification is seen in the cavernous portions of the internal carotid arteries bilaterally. No significant stenosis is seen. No occlusion or aneurysm is present. Anterior Cerebral Arteries: Right: No aneurysm, occlusion or significant stenosis. Left: No aneurysm, occlusion or significant stenosis. Middle Cerebral Arteries: Right: No aneurysm, occlusion or significant stenosis. Left: No aneurysm, occlusion or significant stenosis. Posterior Cerebral Arteries: Right: No aneurysm, occlusion or significant stenosis. Left: No aneurysm, occlusion or significant stenosis. The left posterior cerebral artery arises from the posterior communicating artery which is a normal variant. Vertebral Arteries: Right: No aneurysm, occlusion or significant stenosis. Left: No aneurysm, occlusion or significant stenosis. Basilar Artery: No aneurysm, occlusion or significant stenosis. IMPRESSION: 1. No large vessel occlusion or significant stenosis on the CT angiography of the head. 2. No acute intracranial process. 3. No occlusion or significant stenosis on the CT angiography of the neck. RADIATION DOSE DELIVERED: 2,107.23mGy.cm Total DLP DATA REPOSITORY: All CT scans at this facility are submitted to the National Radiology Data Registry (NRDR) Dose Index Registry (DIR) with the [employer] (ACR). RADIATION OPTIMIZATION: All CT scans at this facility use at least one of these dose optimization techniques: automated exposure control; mA and/or kV adjustment per patient size (includes targeted exams where dose is matched to clinical indication); or iterative reconstruction.
[2025-02-07 18:53] LABS: Troponin I 7 ng/L (<or=51)
[2025-02-07 19:44] VITALS: BP 165/83; PULSE 52; RESP 14; TEMP 36.8; O2SAT 97
== END 2025-02-07 19:49 | disposition home or self-care (01) ==
PROVIDERS: Emergency Provider Emergency Medicine; PCP Nurse Practitioner Family
DX: R42 Dizziness and giddiness (principal); R11.2 Nausea with vomiting, unspecified; E78.5 Hyperlipidemia, unspecified; Z87.891 Personal history of nicotine dependence
CPT/HCPCS: 70496; 70498; 80053; 93005; 96374; 96375; 99285; 83735; 84484; 85025; 85610; 93010; J0131; J2405; J3490